=== PATIENT | male | born 1985 | race Caucasian/White ===

== ENCOUNTER 2024-10-26 20:03 | Emergency (ER) | payer MEDICAID ==
[~2024-10-26] VITALS: Ht 177.8 cm; Wt 89.7 kg
[2024-10-26 20:07] VITALS: BP 138/82; PULSE 93; RESP 17; O2SAT 97
--- NOTE | 2024-10-26 21:07 | RADIOLOGY REPORT ---
EXAMINATIONS: 3 views of the right foot CLINICAL HISTORY: FOOT PAIN RIGHT COMPARISON: None Findings and impression: No grossly displaced fractures, dislocations or bony destructive changes are evident on the provided views. Dorsal and plantar calcaneal enthesopathy noted. If the patient has symptoms clinically suspicious for radiographically occult fracture, follow-up ra diographs could be obtained in 7-10 days time.
--- NOTE | 2024-10-26 23:41 | Physician Documentation ---
History of Present Illness ~ Chief Complaint: Foot pain Stated Complaint: FOOTPAIN Time Seen by MD: 21:41 Tetanus witin 5 years: No Medication Reconciliation Allergies: Coded Allergies: Penicillins (Verified Allergy, Unknown, 10/26/24) divalproex sodium (Verified Allergy, Unknown, 10/26/24) Physical Exam Vital Signs: Temperature: 98.3, Source: Temporal, Heart Rate: 93, Respiratory Rate: 17, BP: 138/82, Pulse Oximetry: 97, Weight: 89.700 Oxygen Flow Rate: 0 Progress Results/Orders Results/Orders Vital Signs 10/26/24 10/26/24 20:07 23:47 Temp 98.3 98.3 Pulse 93 Resp 17 B/P (MAP) 138/82 Pulse Ox 97 O2 Flow Rate 0 Departure Impression: Primary Impression: Foot pain Discharge Instructions: Foot Pain Referrals: NO PRIMARY CARE PROVIDER (PCP) Education Educated: Patient Educated regarding: diagnosis, need for follow up Signature Scribe Signature: . Attestation: Scribed for Veto Collins by DAMON Nesbitt . 10/27/24 18:16 VETO COLLINS Oct 26, 2024 23:41
[2024-10-26 23:47] VITALS: TEMP 98.3
== END 2024-10-26 23:48 | disposition home or self-care (01) ==
LOC: ER 20:04
DX: M79.671 Pain in right foot (principal); Z88.0 Allergy status to penicillin; Z88.8 Allergy status to other drugs, medicaments and biological substances
CPT/HCPCS: 73630; 99283; L1930; L4360

== ENCOUNTER 2025-02-21 13:33 | Emergency (ER) | payer MEDICAID | END 2025-02-21 14:59 | disposition left against medical advice (07) | LOC: ER 13:33 | DX: A64 Unspecified sexually transmitted disease (principal); Z53.21 Procedure and treatment not carried out due to patient leaving prior to being seen by health care provider ==

== ENCOUNTER 2025-02-25 14:26 | Emergency (ER) | payer MEDICAID ==
[~2025-02-25] VITALS: Ht 177.8 cm; Wt 94.0 kg
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
[2025-02-25] MEDS: HYDROcodone/acetaminophen 10/325mg tab PO ONE (18:22)
[2025-02-25] MEDS: ketorolac trometh 30MG/ML vial 30 MG/ML VIAL IM ONE (18:24)
[2025-02-25 18:32] VITALS: BP 140/79; PULSE 89; RESP 17; TEMP 98.4; O2SAT 99
== END 2025-02-25 18:27 | disposition home or self-care (01) ==
LOC: ER 14:27
DX: S00.93XA Contusion of unspecified part of head, initial encounter (principal); S09.90XA Unspecified injury of head, initial encounter; Z88.0 Allergy status to penicillin; Z88.8 Allergy status to other drugs, medicaments and biological substances; W22.8XXA Striking against or struck by other objects, initial encounter; Y93.89 Activity, other specified; Y92.89 Other specified places as the place of occurrence of the external cause; Y99.8 Other external cause status
CPT/HCPCS: 96372; 99283; J1885